=== PATIENT | male | born 1940 | race Caucasian/White ===

== ENCOUNTER 2017-01-02 15:01 | Outpatient (CLI) | payer MEDICARE, OTHER | END 2017-01-02 15:02 | disposition home or self-care (01) | DX: N25.0 Renal osteodystrophy (principal); D50.0 Iron deficiency anemia secondary to blood loss (chronic); D70.9 Neutropenia, unspecified; M10.00 Idiopathic gout, unspecified site; N30.00 Acute cystitis without hematuria; N20.0 Calculus of kidney ==

== ENCOUNTER 2017-01-27 12:55 | Outpatient (CLI) | payer MEDICARE, OTHER | END 2017-01-27 12:56 | disposition home or self-care (01) | DX: E11.9 Type 2 diabetes mellitus without complications (principal) ==

== ENCOUNTER 2017-05-08 08:00 | Outpatient (CLI) | payer MEDICARE, OTHER ==
[2017-05-08 14:03] LABS: HCT - HEMATOCRIT 34.7 % (42.0-52.0); HGB - HEMOGLOBIN 11.4 g/dL (14.0-18.0); MEAN CORPUSCULAR HEMOGLOBIN 32.8 pg (27.0-31.0); MEAN CORPUSCULAR HGB CONC 32.9 g/dL (32.0-36.0); MEAN CORPUSCULAR VOLUME 99.4 fL (80.0-94.0); MEAN PLATELET VOLUME 8.9 fL (7.4-11.4); RED BLOOD COUNT 3.49 10^6/uL (4.70-6.10); RED CELL DISTRIBUTION WIDTH 13.5 % (12.0-15.0); WHITE BLOOD COUNT 8.7 x10^3/uL (4.8-10.8)
[2017-05-08 14:21] LABS: CALCIUM 7.9 mg/dL (8.5-10.3); CREATININE 4.5 mg/dL (0.6-1.2)
== END 2017-05-08 08:01 | disposition home or self-care (01) ==
LOC: LAB.N 08:00
PROVIDERS: ATTEND Internal Medicine Nephrology
DX: N05.9 Unspecified nephritic syndrome with unspecified morphologic changes (principal); D70.9 Neutropenia, unspecified
CPT/HCPCS: 36415; 80048

== ENCOUNTER 2017-07-17 14:28 | Outpatient (CLI) | payer MEDICARE, OTHER ==
[2017-07-17 13:15] LABS: BASOPHILS % (AUTO) 0.5 %; EOSINOPHILS # (AUTO) 0.5 10^3/uL (0.0-0.7); HCT - HEMATOCRIT 35.2 % (42.0-52.0); HGB - HEMOGLOBIN 11.6 g/dL (14.0-18.0); LYMPHOCYTES # (AUTO) 1.1 10^3/uL (1.5-3.5); LYMPHOCYTES % (AUTO) 12.3 %; MEAN CORPUSCULAR HEMOGLOBIN 32.5 pg (27.0-31.0); MEAN CORPUSCULAR VOLUME 98.4 fL (80.0-94.0); MEAN PLATELET VOLUME 8.8 fL (7.4-11.4); MONOCYTES # (AUTO) 0.7 10^3/uL (0.0-1.0); MONOCYTES % (AUTO) 8.4 %; NEUTROPHILS # (AUTO) 6.3 10^3/uL (1.5-6.6); NEUTROPHILS % (AUTO) 72.8 %; RED BLOOD COUNT 3.57 10^6/uL (4.70-6.10); RED CELL DISTRIBUTION WIDTH 13.4 % (12.0-15.0); UNCORRECTED WHITE BLOOD COUNT 8.7 x10^3/uL; WHITE BLOOD COUNT 8.7 x10^3/uL (4.8-10.8)
[2017-07-17 13:38] LABS: CREATININE 4.2 mg/dL (0.6-1.2); POTASSIUM 4.3 mmol/L (3.5-5.0)
== END 2017-07-17 14:29 | disposition home or self-care (01) ==
LOC: LAB.N 14:28
PROVIDERS: ATTEND Internal Medicine Nephrology
DX: N05.9 Unspecified nephritic syndrome with unspecified morphologic changes (principal); E11.9 Type 2 diabetes mellitus without complications; D70.9 Neutropenia, unspecified
CPT/HCPCS: 36415; 80048; 83036; 85025

== ENCOUNTER 2017-09-06 08:13 | Emergency (ER) | payer MEDICARE, OTHER ==
[2017-09-06 08:40] LABS: BASOPHILS % (AUTO) 0.6 %; EOSINOPHILS # (AUTO) 0.2 10^3/uL (0.0-0.7); EOSINOPHILS % (AUTO) 2.8 %; HCT - HEMATOCRIT 34.1 % (42.0-52.0); HGB - HEMOGLOBIN 11.5 g/dL (14.0-18.0); LYMPHOCYTES # (AUTO) 0.8 10^3/uL (1.5-3.5); LYMPHOCYTES % (AUTO) 10.8 %; MEAN CORPUSCULAR HGB CONC 33.7 g/dL (32.0-36.0); MEAN CORPUSCULAR VOLUME 97.8 fL (80.0-94.0); MEAN PLATELET VOLUME 8.3 fL (7.4-11.4); MONOCYTES # (AUTO) 0.8 10^3/uL (0.0-1.0); MONOCYTES % (AUTO) 10.2 %; NEUTROPHILS # (AUTO) 5.7 10^3/uL (1.5-6.6); NEUTROPHILS % (AUTO) 75.6 %; RED BLOOD COUNT 3.49 10^6/uL (4.70-6.10); RED CELL DISTRIBUTION WIDTH 12.9 % (12.0-15.0); UNCORRECTED WHITE BLOOD COUNT 7.6 x10^3/uL; WHITE BLOOD COUNT 7.6 x10^3/uL (4.8-10.8)
[2017-09-06 08:55] LABS: ALBUMIN/GLOBULIN RATIO 0.9 (1.0-2.2); BILIRUBIN,TOTAL 0.4 mg/dL (0.2-1.0); TOTAL PROTEIN 7.6 g/dL (6.7-8.2)
--- NOTE | 2017-09-06 09:26 | XRAY Preliminary Report ---
Exam: XR CHEST 1 VIEW IMPRESSION: 1. Mild probable subsegmental atelectasis at left lung base. 2. Mild calcified atherosclerosis in aorta. 3. Exam otherwise as above. [facility] SITE ID: [id number]
--- NOTE | 2017-09-06 09:29 | XRAY Report ---
EXAM: CHEST RADIOGRAPHY EXAM DATE: 09/06/2017 08:47 AM. CLINICAL HISTORY: Chest pain. COMPARISON: None. TECHNIQUE: 1 view. FINDINGS: Lungs/Pleura: Mild elevation of lateral aspect of left hemidiaphragm with adjacent probable subsegmen shashank atelectasis at left lung base. Lungs otherwise appear clear. No pleural effusion. No pneumothorax . Pulmonary vascularity is nondistended. No interstitial or airspace pulmonary edema. Mediastinum: Mild calcified atherosclerosis in the aorta. Heart size normal. No adenopathy. Gem appe ar unremarkable. Other: None. IMPRESSION: 1. Mild probable subsegmental atelectasis at left lung base. 2. Mild calcified atherosclerosis in aorta. 3. Exam otherwise as above. [facility] Referring Provider Line: [phone] SITE ID: [id number]
--- NOTE | 2017-09-06 10:53 | Ultrasound Preliminary Report ---
Exam: US DUPLEX EXT VEINS RIGHT IMPRESSION: 1. Negative for DVT in the right lower extremity. [facility] SITE ID: [id number]
--- NOTE | 2017-09-06 10:56 | Ultrasound Report ---
EXAM: RIGHT LOWER EXTREMITY VENOUS ULTRASOUND EXAM DATE: 09/06/2017 10:35 AM. CLINICAL HISTORY: Hx of DVT with right leg swelling. Question recurrent DVT. COMPARISON: None available. TECHNIQUE: Real-time sonographic vascular imaging was performed by the gleason operator through the lower extremity utilizing both color-flow and Doppler spectral analysis. Multiple traveling sales representative static vinod ges were saved for review. FINDINGS: Common Femoral Vein (CFV): Normal. CFV-GSV Junction: Normal. Profunda Femoral Vein (PFV): Normal. Femoral Vein (FV) Prox: Normal. Femoral Vein (FV) Mid: Normal. Femoral Vein (FV) Dist: Normal. Popliteal Vein: Normal. Posterior Tibial Veins: Normal. Peroneal Veins: Normal. Other: No Kenyon's cyst evident. IMPRESSION: 1. Negative for DVT in the right lower extremity. [facility] Referring Provider Line: [phone] SITE ID: [id number]
--- NOTE | 2017-09-06 11:39 | ED Physician Documentation ---
History of Present Illness - Stated complaint Stated Complaint: LEG PX/HARD TO WALK - Chief complaint Chief Complaint: Resp - History obtained from History obtained from: Patient (Pt is here for evaluation of right leg swelling and concerns for a DVT. he states that over the past couple days he has had swelling in his right foot and ankle with pain. he states that he had a DVT in hie left leg back in 1994. not currently on anticoagulation. he called his PCM about this and was told to come into the ER to get it checked. he denies trauma. he states that he has renal issues and is scheduled for a fistula next month. he is not on dialysis. During my exam he denied chest pain and shortness of breath.) Review of Systems Constitutional: denies: Fever, Chills, Fatigue Ears: denies: Ear pain Throat: denies: Sore throat Cardiac: reports: Pedal edema. denies: Chest pain / pressure, Palpitations, Calf pain Respiratory: denies: Dyspnea, Cough, Hemoptysis, Wheezing GI: denies: Abdominal Pain, Abdominal Swelling, Nausea, Vomiting, Constipation, Diarrhea : denies: Dysuria, Frequency, Hesitancy, Incontinent Skin: denies: Rash, Lesions, Abrasion (s) Musculoskeletal: reports: Extremity pain (right foot), Joint pain (right ankle) . denies: Joint swelling Neurologic: denies: Generalized weakness, Headache, Head injury, LOC PD PAST MEDICAL HISTORY - Past Medical History Past Medical History: Yes Cardiovascular: Congestive heart failure, Hypertension, Coronary artery disease Respiratory: None Endocrine/Autoimmune: Type 2 diabetes GI: Colon polyps : Renal insuffiency, Kidney stones HEENT: None Psych: None Musculoskeletal: None Derm: None - Past Surgical History Past Surgical History: Yes General: Colonoscopy Ortho: Other - Present Medications Home Medications: Ambulatory Orders Medication Instructions Recorded Confirmed Aspirin 81 mg PO DAILY 05/23/14 09/06/17 Atorvastatin [Lipitor] 80 mg PO DAILY 05/23/14 09/06/17 Insulin Glargine [Lantus Solostar] 30 units SQ QDBREAKFAST 05/23/14 09/06/17 Insulin Lispro [Humalog] 8 units SQ BID 05/23/14 09/06/17 Lisinopril 5 mg PO DAILY 05/23/14 09/06/17 Metoprolol Succinate [Toprol Xl] 100 mg PO DAILY 05/23/14 09/06/17 amLODIPine [Norvasc] 2.5 mg PO DAILY 05/23/14 09/06/17 Cholecalciferol (Vitamin D3) 2,000 unit PO DAILY 11/21/16 09/06/17 [Vitamin D] Furosemide 40 mg PO DAILY 11/21/16 09/06/17 - Allergies Allergies/Adverse Reactions: Allergies Allergy/AdvReac Type Severity Reaction Status Date / Time No Known Drug Allergies Allergy Verified 05/22/14 14:06 - Social History Does the pt smoke?: No Smoking Status: Never smoker Does the pt drink ETOH?: Yes Does the pt have substance abuse?: No PD ED PE NORMAL - Vitals Vital signs reviewed: Yes - General General: Alert and oriented X 3, No acute distress - HEENT HEENT: Atraumatic - Neck Neck: Supple, no meningeal sign - Cardiac Cardiac: RRR, No gallop, No rub, Strong equal pulses - Respiratory Respiratory: No respiratory distress, Clear bilaterally - Abdomen Abdomen: Soft, Non tender, Non distended - Back Back: No CVA TTP - Derm Derm: Warm and dry, No rash, Other (redness around the right great toe) - Extremities Extremities: No calf tenderness / cord. No: No tenderness to palpate (has one tenderness to palpation to the outside of the right foot), No edema (2+ pitting edema to the right foot and 1+ to the left foot) - Neuro Neuro: Alert and oriented X 3, No motor deficit, No sensory deficit, Normal speech Eye Opening: Spontaneous Motor: Obeys Commands Verbal: Oriented GCS Score: 15 - Psych Psych: Normal mood, Normal affect Results - Vitals Vitals: Vital Signs - 24 hr 09/06/17 09/06/17 09/06/17 08:20 09:15 09:45 Temperature 36.3 C L Heart Rate 87 77 72 Respiratory 22 17 16 Rate Blood Pressure 142/72 H 103/56 L 126/68 O2 Saturation 97 97 97 09/06/17 10:52 Temperature 37.0 C Heart Rate 71 Respiratory 15 Rate Blood Pressure 131/70 H O2 Saturation 100 Oxygen O2 Source Room air - EKG (time done) 0820 Rate: Rate (enter#) Rhythm: NSR Amonate: Normal Intervals: Normal TN, QRS normal QRS: Normal Ischemia: Non specific changes - Labs Labs: Laboratory Tests 09/06/17 09/06/17 09/06/17 08:22 08:22 08:22 WBC 7.6 RBC 3.49 L Hgb 11.5 L Hct 34.1 L MCV 97.8 H MCH 33.0 H MCHC 33.7 RDW 12.9 Plt Count 238 MPV 8.3 Neut # 5.7 Lymph # 0.8 L Dubois # 0.8 Eos # 0.2 Baso # 0.0 Absolute Nucleated RBC 0.00 Nucleated RBC % 0.0 Sodium 137 Potassium 4.0 Chloride 101 Carbon Dioxide 21 Anion Gap 15.0 H BUN 84 H* Creatinine 5.0 H Estimated GFR (MDRD) 11 L Glucose 300 H Calcium 8.0 L Total Bilirubin 0.4 AST 15 ALT 10 Alkaline Phosphatase 83 Troponin I < 0.04 Total Protein 7.6 Albumin 3.5 Globulin 4.1 Albumin/Globulin Ratio 0.9 L Lipase 71 H - Rads (name of study) CXR Radiology: Final report received ( Mild probable subsegmental atelectasis at left lung base. Mild calcified atherosclerosis in aorta. ) DVT Radiology: Final report received PD MEDICAL DECISION MAKING - ED course Complexity details: d/w patient ED course: Pt w/o shortness of breath and w/o chest pain, No fevers, has elevated creat but this is not new and he is under the care of urology. He is not in heart failure clinically. CXR unremarkable for fluid overload. Has some redness over the right great toe but is not warm and not tender. considered cellulitis but will hold on ABX for now. I informed the pt about this and told him things to watch out for and he was instructed to return if this area becomes painful or more red. He expressed understanding. He denied any CP or SOB. considered PE but w/ these symptoms and neg RLQ US will hold on V/Q for now. Discussed all of this with the pt. will double his does of lasix today and have him follow up with his PCM tomorrow. He expressed understanding. Departure - Departure Disposition: 01 Home, Self Care Clinical Impression: Renal insufficiency Edema Qualifiers: Edema type: unspecified Qualified Code(s): R60.9 - Edema, unspecified Condition: Good Instructions: ED Leg Swelling Unilateral Follow-Up: Omar Fish MD [Primary Care Provider] - Comments: Recommend that you double up on the dose of lasix today and call your primary care provider tomorrow for a follow up. Return to the ER for any chest pain, shortness of breath, worsening redness of the right foot or any other new or worsening symptoms.
[2017-09-06 12:16] VITALS: BP 133/75
== END 2017-09-06 12:13 | disposition home or self-care (01) ==
LOC: ED 08:13
DX: N28.9 Disorder of kidney and ureter, unspecified (principal); R60.0 Localized edema; R94.31 Abnormal electrocardiogram [ECG] [EKG]; I11.0 Hypertensive heart disease with heart failure; I50.9 Heart failure, unspecified; I25.10 Atherosclerotic heart disease of native coronary artery without angina pectoris; E11.8 Type 2 diabetes mellitus with unspecified complications; Z79.84 Long term (current) use of oral hypoglycemic drugs; Z79.82 Long term (current) use of aspirin
CPT/HCPCS: 36415; 71010; 80053; 83690; 84484; 85025; 93005; 99284

== ENCOUNTER 2017-10-01 14:43 | Outpatient (CLI) | payer MEDICARE, OTHER ==
[2017-10-01 14:41] LABS: CREATININE 4.4 mg/dL (0.6-1.2); POTASSIUM 3.9 mmol/L (3.5-5.0)
== END 2017-10-01 14:44 | disposition home or self-care (01) ==
LOC: LAB.N 14:43
PROVIDERS: ATTEND Internal Medicine Nephrology
DX: N05.9 Unspecified nephritic syndrome with unspecified morphologic changes (principal)
CPT/HCPCS: 36415; 80048

== ENCOUNTER 2017-11-26 08:41 | Outpatient (CLI) | payer MEDICARE, OTHER ==
[2017-11-26 13:22] LABS: HGB - HEMOGLOBIN 10.6 g/dL (14.0-18.0); MEAN CORPUSCULAR HEMOGLOBIN 32.4 pg (27.0-31.0); MEAN CORPUSCULAR HGB CONC 33.5 g/dL (32.0-36.0); MEAN CORPUSCULAR VOLUME 96.7 fL (80.0-94.0); MEAN PLATELET VOLUME 8.5 fL (7.4-11.4); RED BLOOD COUNT 3.28 10^6/uL (4.70-6.10); RED CELL DISTRIBUTION WIDTH 13.8 % (12.0-15.0); WHITE BLOOD COUNT 6.5 x10^3/uL (4.8-10.8)
[2017-11-26 13:41] LABS: CALCIUM 7.7 mg/dL (8.5-10.3); CREATININE 5.1 mg/dL (0.6-1.2); PHOSPHORUS 4.3 mg/dL (2.5-4.6); URIC ACID 11.5 mg/dL (2.6-7.2)
[2017-11-26 14:22] LABS: HB2 TOTAL 11.4 g/dL; HEMOGLOBIN A1C 0.7 g/dL; HEMOGLOBIN A1C % 7.8 % (4.6-6.2)
== END 2017-11-26 08:42 | disposition home or self-care (01) ==
LOC: LAB.N 08:41
PROVIDERS: ATTEND Internal Medicine Nephrology
DX: N05.9 Unspecified nephritic syndrome with unspecified morphologic changes (principal); E11.9 Type 2 diabetes mellitus without complications; D70.9 Neutropenia, unspecified; D63.1 Anemia in chronic kidney disease; M10.00 Idiopathic gout, unspecified site; E83.30 Disorder of phosphorus metabolism, unspecified; N25.81 Secondary hyperparathyroidism of renal origin
CPT/HCPCS: 36415; 80048; 83036; 83970; 84100; 84550

== ENCOUNTER 2017-12-11 08:00 | Outpatient (CLI) | payer MEDICARE, OTHER ==
[2017-12-12 13:51] LABS: HEPATITIS C ANTIBODY NON-REACTIVE (NON-REACTIVE)
[2017-12-12 14:17] LABS: HEPATITIS B SURFACE ANTIGEN NON-REACTIVE (NON-REACTIVE)
== END 2017-12-11 23:59 | disposition home or self-care (01) ==
LOC: LAB.N 08:00
PROVIDERS: ATTEND Internal Medicine Nephrology
DX: B19.10 Unspecified viral hepatitis B without hepatic coma (principal); B17.10 Acute hepatitis C without hepatic coma
CPT/HCPCS: 36415; 86317; 86704; 86803; 87340

== ENCOUNTER 2017-12-25 15:31 | Outpatient (CLI) | payer MEDICARE, OTHER ==
--- NOTE | 2017-12-25 21:35 | XRAY Report ---
EXAM: CHEST RADIOGRAPHY EXAM DATE: 12/25/2017 03:58 PM. CLINICAL HISTORY: ESRD. COMPARISON: 09/06/2017. TECHNIQUE: 2 views. FINDINGS: Lungs/Pleura: No focal consolidation. No radiographic findings of tuberculosis. No pleural effusion. No pneumothorax. Normal volumes. Mediastinum: Heart size is upper limit of normal. Other: None. IMPRESSION: No acute cardiopulmonary abnormality. [facility] Referring Provider Line: [phone] SITE ID: [id number]
== END 2017-12-25 15:32 | disposition home or self-care (01) ==
LOC: DI.N 15:31
PROVIDERS: ATTEND Internal Medicine Nephrology
DX: N18.6 End stage renal disease (principal)
CPT/HCPCS: 71046

== ENCOUNTER 2018-05-11 08:11 | Outpatient (CLI) | payer MEDICARE, OTHER ==
--- NOTE | 2018-05-11 08:54 | XRAY Report ---
Procedure Date: 05/11/2018 Accession Number: [id number] / [id number] Procedure: XR - Chest 2 View X-Ray CPT Code: 91184 FULL RESULT: EXAM: Chest 2 View X-Ray DATE: 05/11/2018 8:21 AM CLINICAL HISTORY: SHORTNESS OF BREATH COMPARISON: 12/25/2017. TECHNIQUE: 2 views. FINDINGS: Lungs/Pleura: No focal opacities evident. No pneumothorax or pleural effusion. Normal volumes. Mediastinum: Heart and mediastinal contours are unremarkable. Other: None. IMPRESSION: No acute cardiopulmonary abnormality. [facility]
== END 2018-05-11 08:12 | disposition home or self-care (01) ==
LOC: DI 08:11
PROVIDERS: ATTEND Internal Medicine Nephrology
DX: R06.02 Shortness of breath (principal); I50.32 Chronic diastolic (congestive) heart failure
CPT/HCPCS: 36415; 71046; 83880

== ENCOUNTER 2020-01-13 11:20 | Outpatient (CLI) | payer MEDICARE, OTHER | END 2020-01-13 11:21 | disposition E | LOC: EMS 11:20 | PROVIDERS: ATTEND Surgery ==